=== PATIENT | female | born 1980 | race Caucasian/White ===

== ENCOUNTER 2019-11-30 20:51 | Emergency (ER) | payer OTHER ==
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
--- NOTE | 2019-11-30 22:12 | CT ---
INDICATION: Injury. TECHNIQUE: CT head without contrast. COMPARISON: None. FINDINGS: CSF spaces: Within normal limits for age. Brain parenchyma and extra-axial spaces: The gomez-white differentiation is normal. No sign of mass, hemorrhage, or midline shift. No extra-axial fluid collection. Skull base and calvarium: The visualized paranasal sinuses and mastoid air cells demonstrate no acute or significant findings. The visualized orbits are grossly unremarkable. No skull fractures. IMPRESSION: Unremarkable noncontrast head CT. Please note that all CT scans at this facility use dose modulation, iterative reconstruction, and/or weight-based dosing when appropriate to reduce radiation dose to as low as reasonably achievable. Dictated by Bc Carlos MD @ Nov 30 2019 10:07PM Signed by Dr. Bc Carlos @ Nov 30 2019 10:11PM
--- NOTE | 2019-11-30 22:23 | CR ---
Indication: Injury and pain Technique: Right wrist 3 view Comparison: None Findings: Bones: Alignment is normal. No fractures or bone lesions. Joint spaces: Unremarkable. Soft tissues: Unremarkable. Impression: No sign of acute injury in the right wrist. Dictated by Bc Carlos MD @ Nov 30 2019 10:20PM Signed by Dr. Bc Carlos @ Nov 30 2019 10:21PM
[2019-11-30 23:15] VITALS: BP 121/65; PULSE 78
== END 2019-11-30 23:05 | disposition home or self-care (01) ==
LOC: MW.ED 20:51
DX: T20.10XA Burn of first degree of head, face, and neck, unspecified site, initial encounter (principal); M25.531 Pain in right wrist; X02.8XXA Other exposure to controlled fire in building or structure, initial encounter
CPT/HCPCS: 29125; 70450; 70450-26; 73110-26-RT; 73110-RT; 99284-25